=== PATIENT | male | born 2000 | race African-American/Black ===

== ENCOUNTER 2020-08-11 20:35 | Inpatient (IN) | payer OTHER ==
[~2020-08-11] VITALS: Ht 182.9 cm; Wt 93.2 kg
[2020-08-11] MEDS ORDERED: FISH1000 PO (20:47)
[2020-08-11 22:11] LABS: MEAN CORPUSCULAR HGB CONC 34.2 g/dl (32.0-36.5); MEAN CORPUSCULAR VOLUME 90.5 fl (80.0-96.0); PLATELET COUNT, AUTOMATED 217 10^3/uL (150-450); WHITE BLOOD COUNT 5.9 10^3/uL (4.0-10.0)
[2020-08-11 22:42] LABS: ACETAMINOPHEN LEVEL < 2.0 UG/ML (10.0-30.0); ALBUMIN 3.8 GM/DL (3.2-5.2); ALT/SGPT 35 U/L (12-78); BILIRUBIN,DIRECT 0.2 MG/DL (0.0-0.2); BILIRUBIN,TOTAL 0.5 MG/DL (0.2-1.0); BLOOD UREA NITROGEN 15 MG/DL (7-18); CALCIUM LEVEL 9.4 MG/DL (8.5-10.1); CARBON DIOXIDE LEVEL 30 MEQ/L (21-32); CHLORIDE LEVEL 108 MEQ/L (98-107); CREATININE FOR GFR 1.36 MG/DL (0.70-1.30); ETHYL ALCOHOL (ETHANOL) < 0.003 % (0.000-0.010); GLOMERULAR FILTRATION RATE > 60.0 (>60); GLUCOSE, FASTING 106 MG/DL (70-100); POTASSIUM SERUM 3.9 MEQ/L (3.5-5.1); SALICYLATE LEVEL < 1.7 MG/DL (5.0-30.0); SODIUM LEVEL 140 MEQ/L (136-145); TOTAL PROTEIN 6.8 GM/DL (6.4-8.2)
--- NOTE | 2020-08-11 22:49 | REPVR ---
PROCEDURE INFORMATION: Exam: XR Complete Acute Abdomen Series Exam date and time: 08/11/2020 10:04 PM Age: 20 years old Clinical indication: Abdominal pain; Generalized; Additional info: Abd pain TECHNIQUE: Imaging protocol: XR complete acute abdomen series, including 2 or more views of the abdomen and a single view chest. COMPARISON: No relevant prior studies available. FINDINGS: Lungs: Normal. No consolidation. Pleural space: Normal. No pneumothorax. Heart/Mediastinum: Normal. No cardiomegaly. Gastrointestinal tract: Normal. No bowel dilation. Intraperitoneal space: Normal. No free air. Bones/joints: Normal. No acute fracture. Soft tissues: Normal. IMPRESSION: No acute findings. Electronically signed by: Dameon Vasques On 08/11/2020 22:49:14 PM
[2020-08-11 22:58] LABS: LIPASE 107 U/L (73-393)
[2020-08-12 00:52] LABS: AMPHETAMINES LEVEL URINE NEGATIVE (NEGATIVE); BARBITURATES URINE NEGATIVE (NEGATIVE); BENZODIAZEPINES URINE NEGATIVE (NEGATIVE); CANNABINOIDS URINE POSITIVE (NEGATIVE); COCAINE METABOLITE URINE NEGATIVE (NEGATIVE); METHADONE URINE NEGATIVE (NEGATIVE); OPIATES URINE NEGATIVE (NEGATIVE); PHENCYCLIDINE URINE NEGATIVE (NEGATIVE)
[2020-08-12] MEDS ORDERED: DOCUSATE SODIUM 100 MG CAP PO ONE ×2 (06:30→18:15)
[2020-08-12] MEDS ORDERED: DIETARY SUPPLEMENTS (12:09)
[2020-08-12] MEDS ORDERED: MOM 30ML SUSPENSION UDC PO PRN (18:30)
[2020-08-12] MEDS ORDERED: ACETAMINOPHEN TAB 650MG DOSE (2X325MG) PO PRN (18:30)
[2020-08-12] MEDS ORDERED: OLANZapine ORAL DISINTEGRATING TAB 5MG PO PRN (18:30)
[2020-08-13] MEDS ORDERED: diphenhydrAMINE 25MG CAP PO ONE (01:00)
[2020-08-13] MEDS: MAALOX 30 ML SUSP *UDC PO PRN (01:42)
[2020-08-13 06:52] VITALS: BP 132/71
[2020-08-13] MEDS ORDERED: LORazepam 2 MG/ML VIAL IM STA (09:12)
[2020-08-13] MEDS ORDERED: HALOPERIDOL 5MG/ML VIAL (J1630 PER 1) IM STA (09:12)
[2020-08-13] MEDS ORDERED: diphenhydrAMINE 50MG/ML VIAL (J1200) IM STA (09:12)
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
--- NOTE | 2020-08-13 11:04 | HPEPDOC ---
[facility] Medical History & Physical Date of Admission Aug 13, 2020 Date of Service: Aug 13, 2020 History and Physical CHIEF COMPLAINT: medical consult. HISTORY OF PRESENT ILLNESS: 20-year-old male seen today in the psychiatric unit for evaluation medically. Patient was seen with security due to aggressive b ehavior prior. Tells me that occasionally he has some testicular discomfort and penile discharge but no pain on urination. He is sexually active. Tells me that over the past 2 years he intermittently has streaks of blood in his stool that comes on and off he is sometimes constipated and has been told in the past that he has hemorrhoids. He doesn't have a primary care doctor in [place] and would like to get one. PAST MEDICAL HISTORY: 1. reports none PAST SURGICAL HISTORY: 1. reports none SOCIAL HISTORY: Tobacco use: Smokes 6 cigarettes daily ETOH: Denies Illicit drug use: In the past but does not disclose which ones he does actively use cannabis ALLERGIES: Please see below. REVIEW OF SYSTEMS: Full 12 system conducted, pertinent positives and negatives reviewed in HPI, all others negative. Constitutional: denies fevers, chills CV: denies CP, palpitations Resp: denies cough, SOB GI: denies abd pain, n/v : denies dysuria, hematuria, endorses penile discharge HOME MEDICATIONS: Please see below. PHYSICAL EXAMINATION: Constitutional: Awake and alert, in no apparent distress ENT: Sclera are clear. Mucosa is moist. Respiratory: Lungs CTA bilaterally. No respiratory distress. No use of accessory muscles. Cardiovascular: RRR S1 and S2 are normal, no murmur Gastrointestinal: Abdomen is soft, non distended, non tender, BS present. Musculoskeletal: No edema Neurologic: No focal neurological deficit. Mental Status: A&O x3, normal affect Skin: Warm, dry LABORATORY DATA: See below. MICROBIOLOGY: Please see below. A/P: 20-year-old male admitted to the psychiatric unit for aggressive behavior/depression. He was seen by the hospitalist service for medical evaluation. I will screen him for STIs. I recommend good outpatient follow-up with a new primary care doctor here in [place]. # Penile discharge: STI check; RPR, HIV, chlamydia, GC, trich. # CARLOS: Creatinine mildly elevated likely prerenal from dehydration. Encourage oral hydration # History of rectal bleeding: No active bleeding. Reports problem ongoing for the past 2 years. Given his age most likely rectal fissure or hemorrhoids. Hemoglobin is low normal. Check CBC in the a.m. Will need good PCP follow-up upon discharge. # Testicular discomfort: Normal on exam. Follow-up with PCP. Will continue to follow A [facility] Vital Signs Vital Signs Date Time Temp Pulse Resp B/P (MAP) Pulse Ox O2 Delivery O2 Flow Rate FiO2 08/13/20 06:52 61 16 132/71 (91) 08/12/20 20:09 98.9 100 Room Air Laboratory Data Labs 24H Vital Signs Date Time Temp Pulse Resp B/P (MAP) Pulse Ox O2 Delivery O2 Flow Rate FiO2 08/13/20 06:52 61 16 132/71 (91) 08/12/20 20:09 98.9 88 16 152/92 (112) 100 Room Air 08/12/20 14:25 95.9 77 16 149/91 (110) 100 Current Medications Medications (Trade) Dose Ordered Sig/Mildred Route PRN Reason Start Time Stop Time Status Last Admin Dose Admin Magnesium Hydroxide (Milk Of Magnesia) 30 ml DAILYPRN PRN PO CONSTIPATION 08/12/20 18:30 08/12/20 22:04 30 ML Home Medications Miscellaneous Medications [Dietary Supplements] PATIENT TAKES SUPPLEMENTS FROM [facility] Allergies Coded Allergies: No Known Allergies (Unverified , 08/11/20) A-FIB/CHADSVASC A-FIB History Current/History of A-Fib/PAF?: No JENNIFER PHAN MD Aug 13, 2020 11:04
[2020-08-13 13:04] LABS: HIV 1&2 SCREEN CENTAUR NEGATIVE (NEGATIVE)
[2020-08-13 14:31] LABS: APPEARANCE, URINE CLEAR (CLEAR); BACTERIA, URINE AUTO NEGATIVE (NEGATIVE); BILIRUBIN, URINE AUTO NEGATIVE (NEGATIVE); BLOOD, URINE BLOOD NEGATIVE (NEGATIVE); COLOR, URINE YELLOW (YELLOW); GLUCOSE, URINE (UA) AUTO NEGATIVE (NEGATIVE); KETONE, URINE AUTO TRACE mg/dL (NEGATIVE); LEUKOCYTE ESTERASE, URINE AUTO NEGATIVE (NEGATIVE); NITRITE, URINE AUTO NEGATIVE (NEGATIVE); PROTEIN, URINE AUTO NEGATIVE (NEGATIVE); RBC, URINE AUTO 2 /HPF (0-3); SPECIFIC GRAVITY URINE AUTO 1.011 (1.002-1.035); SQUAMOUS EPITHELIAL CELL UR AU 0 /HPF (0-6); UROBILINOGEN, URINE AUTO 0.2 mg/dL (0.0-2.0); WBC, URINE AUTO 2 /HPF (0-3)
[2020-08-13] MEDS: traZODone 50 MG TAB PO PRN (23:39)
[2020-08-13] MEDS ORDERED: diphenhydrAMINE 50MG CAP PO ONE (23:45)
[2020-08-14 07:16] LABS: HEMATOCRIT 42.1 % (42.0-52.0); HEMOGLOBIN 14.6 g/dl (13.5-17.5); MEAN CORPUSCULAR HEMOGLOBIN 31.3 pg (27.0-33.0); MEAN CORPUSCULAR HGB CONC 34.7 g/dl (32.0-36.5); MEAN CORPUSCULAR VOLUME 90.1 fl (80.0-96.0); PLATELET COUNT, AUTOMATED 253 10^3/uL (150-450); RED BLOOD COUNT 4.67 10^6/uL (4.30-6.10); WHITE BLOOD COUNT 4.8 10^3/uL (4.0-10.0)
[2020-08-14 07:37] LABS: BLOOD UREA NITROGEN 10 MG/DL (7-18); CALCIUM LEVEL 9.6 MG/DL (8.5-10.1); CARBON DIOXIDE LEVEL 24 MEQ/L (21-32); CHLORIDE LEVEL 106 MEQ/L (98-107); CREATININE FOR GFR 1.38 MG/DL (0.70-1.30); GLOMERULAR FILTRATION RATE > 60.0 (>60); GLUCOSE, FASTING 92 MG/DL (70-100); POTASSIUM SERUM 3.6 MEQ/L (3.5-5.1); SODIUM LEVEL 139 MEQ/L (136-145)
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
[2020-08-14 17:55] VITALS: BP 135/71
--- NOTE | 2020-08-14 18:55 | IPNPDOC ---
Text Note Date of Service The patient was seen on 08/14/20. NOTE 20-year-old male admitted to the psychiatric unit for aggressive behavior/depression. He was seen by the hospitalist service for medical evaluation. I will screen him for STIs. I recommend good outpatient follow-up with a new primary care doctor here in [place]. # Penile discharge: STI check; RPR, HIV, chlamydia, GC, trich. Patient refusing to provide urine sample to nurse. Given his refusal and penile discharge and a male I'm going to treat him for gonorrhea and chlamydia. # CARLOS: Creatinine mildly elevated likely prerenal from dehydration. Continue to encourage oral hydration. Should follow-up with PCP 3-5 days from discharge to monitor kidney function. # History of rectal bleeding: No active bleeding. Reports problem ongoing for the past 2 years. Given his age most likely rectal fissure or hemorrhoids. Hemoglobin is low normal. Will need good PCP follow-up upon discharge. CBC from this morning shows a hemoglobin of 14.6. # Testicular discomfort: Normal on exam. Follow-up with PCP. Signing off. Don't hesitate to contact me with any questions A [facility] VSJudi, I+O VS, Judi, I+O Vital Signs Date Time Temp Pulse Resp B/P (MAP) Pulse Ox O2 Delivery O2 Flow Rate FiO2 08/13/20 06:52 61 16 132/71 (91) 08/12/20 20:09 98.9 100 Room Air JENNIFER PHAN MD Aug 14, 2020 07:14
[2020-08-14] MEDS ORDERED: cefTRIAXone SOD 250MG VIAL (J0696 PER 250MG) IM ONE (19:00)
[2020-08-14] MEDS ORDERED: LIDOCAINE 1% SDV 5ML VIAL DILUENT ONE (19:00)
[2020-08-14] MEDS ORDERED: AZITHROMYCIN 250MG TABLET PO ONE (19:00)
[2020-08-14] MEDS ORDERED: diphenhydrAMINE 50MG CAP PO SCH (21:00)
[2020-08-15] MEDS: traZODone 50 MG TAB PO PRN (02:28)
[2020-08-15] MEDS: MAALOX 30 ML SUSP *UDC PO PRN (02:32)
[2020-08-15 06:31] VITALS: BP 131/73
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
== END 2020-08-15 11:15 | disposition home or self-care (01) | DRG 885 ==
LOC: M ED 20:35 → M ED INP 08-12 18:26 → M PSY 08-12 21:21
PROVIDERS: ADMIT Psychiatry & Neurology Psychiatry; ATTEND Psychiatry & Neurology Psychiatry
DX: F29 Unspecified psychosis not due to a substance or known physiological condition (principal); R45.851 Suicidal ideations; N17.9 Acute kidney failure, unspecified; F17.210 Nicotine dependence, cigarettes, uncomplicated; F12.90 Cannabis use, unspecified, uncomplicated; F15.959 Other stimulant use, unspecified with stimulant-induced psychotic disorder, unspecified; E86.0 Dehydration